=== PATIENT | female | born 1970 | race Two or more races ===

== ENCOUNTER 2023-07-27 15:30 | Emergency (ER) | payer SELFPAY ==
--- NOTE | 2023-07-27 16:37 | RAD REPORT ---
EXAM DESCRIPTION: RAD - Hand Right 3 View - 07/27/2023 4:31 pm CLINICAL HISTORY: PAIN COMPARISON: <Comparisons> FINDINGS: Mild soft tissue swelling. No fracture or dislocation.
--- NOTE | 2023-07-27 17:36 | ER ---
Nurse's Notes [facility] Name: Carole Monahan Age: 52 yrs Sex: Female : 1970 Arrival Date: 07/27/2023 Time: 15:30 Bed 11 Private MD: Diagnosis: Sprain of right fourth and fifth fingers Presentation: 07/26 15:53 Chief complaint: Patient states: she was training horses yesterday when the rope got ap3 twisted around the fingers of her right hand and she felt a "crunch". patient complains of pain 5/10 on the pain scale. Coronavirus screen: At this time, the client does not indicate any symptoms associated with coronavirus-19. Ebola Screen: No symptoms or risks identified at this time. Initial Sepsis Screen: Does the patient meet any 2 criteria? No. Patient's initial sepsis screen is negative. Does the patient have a suspected source of infection? No. Patient's initial sepsis screen is negative. Risk Assessment: Do you want to hurt yourself or someone else? Patient reports no desire to harm self or others. Onset of symptoms was July 26, 2023. 15:53 Method Of Arrival: Ambulatory ap3 15:53 Acuity: DEWAYNE 4 ap3 Triage Assessment: 15:57 General: Appears in no apparent distress. Behavior is calm, cooperative, appropriate ap3 for age. Pain: Complains of pain in right hand Pain currently is 5 out of 10 on a pain scale. at worst was 9 out of 10 on a pain scale. Pain began 1 day ago. Neuro: Level of Consciousness is awake, alert, obeys commands, Oriented to person, place, time, situation, Appropriate for age. Cardiovascular: Patient's skin is warm and dry. Respiratory: Airway is patent Respiratory effort is even, unlabored, Respiratory pattern is regular, symmetrical. Musculoskeletal: Swelling present in right little finger. Historical: - Allergies: 15:54 ceptra; ap3 15:54 Morphine; ap3 15:54 Demerol; ap3 15:54 Darvocet-N 100; ap3 15:54 Codeine; ap3 15:54 Latex, Natural Rubber; ap3 - Immunization history:: Adult Immunizations up to date. - Infectious Disease History:: Denies. - Family history:: not pertinent. - Social history:: Smoking status: Patient denies any tobacco usage or history of. Screenin:58 [facility] ED Fall Risk Assessment (Adult) History of falling in the last 3 months, ap3 including since admission No falls in past 3 months (0 pts) Confusion or Disorientation No (0 pts) Intoxicated or Sedated No (0 pts) Impaired Gait No (0 pts) Mobility Assist Device Used No (0 pt) Altered Elimination No (0 pt) Score/Fall Risk Level 0 - 2 = Low Risk Oriented to surroundings, Maintained a safe environment, Educated pt \\T\\ family on fall prevention, incl call for assistance when getting out of bed, Assessed \\T\\ reinforced patient's understanding of fall precautions, Provided non-skid footwear, Hourly rounding (assess needs \\T\\ fall precautionary measures) done, Used ambulatory aids as needed (educated on \\T\\ assisted with), Used gait belt as appropriate. Abuse screen: Denies threats or abuse. Nutritional screening: No deficits noted. Tuberculosis screening: No symptoms or risk factors identified. Assessment: 17:13 General: Appears in no apparent distress. Behavior is calm, cooperative. Neuro: Level hb of Consciousness is awake, alert, obeys commands, Oriented to person, place, time, situation. Cardiovascular: Patient's skin is warm and dry. Respiratory: Respiratory effort is even, unlabored, Respiratory pattern is regular, symmetrical. Musculoskeletal: Reports right hand pain. Vital Signs: 15:53 BP 137 / 75; Pulse 72; Resp 17; Temp 97.8; Pulse Ox 100% ; Weight 77.11 kg; Height 5 ap3 ft. 4 in. ; Pain 5/10; 15:53 Body Mass Index 29.18 (77.11 kg, 162.56 cm) ap3 15:53 Pain Scale: Adult ap3 ED Course: 15:46 Patient arrived in ED. mg5 15:47 David Mckeon MD is Attending Physician. rt 15:54 Triage completed. ap3 15:58 Arm band placed on left wrist. ap3 16:33 Hand Right 3 View XRAY In Process Unspecified. EDMS 17:13 Patient has correct armband on for positive identification. Provided Education on: use hb of call light. 17:13 No provider procedures requiring assistance completed. Patient did not have IV access hb during this emergency room visit. 17:35 Bell, Errol, DO is Referral Physician. rt 17:38 Aragon, Raquel, RN is Primary Nurse. hb Administered Medications: No medications were administered Medication: 17:13 VIS not applicable for this client. hb Outcome: 17:35 Discharge ordered by . rt 17:41 Discharged to home ambulatory, with family, hb 17:41 Condition: stable 17:41 Discharge instructions given to patient, Instructed on discharge instructions, follow up and referral plans. Demonstrated understanding of instructions, follow-up care, 17:41 Patient left the ED. hb Signatures: Dispatcher [employer] EDMS Raquel Aragon, RN RN Sylvia Pierre RN RN ap3 David Mckeon MD MD rt Melissa To mg5
--- NOTE | 2023-07-27 17:36 | EDPHYS ---
Physician Documentation [facility] Name: Carole Monahan Age: 52 yrs Sex: Female : 1970 Arrival Date: 07/27/2023 Time: 15:30 Bed 11 Private MD: ED Physician David Mckeon HPI: 07/26 16:27 This 52 yrs old Female presents to ER via Ambulatory with complaints of Hand Injury. rt 16:27 Patient presents to the ED with a head injury that started last night. Patient was rt training a horse, when the lid line pulled while was wrapped her hand. She reports of pain mostly to the fourth and fifth digits with swelling to the fifth digit. States that is difficult to close the hand due to the pain. Denies other injury, acute complaints, symptoms are aching nature, nonradiating, mild in severity, no other aggravating or alleviating factors.. Historical: - Allergies: 15:54 ceptra; ap3 15:54 Morphine; ap3 15:54 Demerol; ap3 15:54 Darvocet-N 100; ap3 15:54 Codeine; ap3 15:54 Latex, Natural Rubber; ap3 - Immunization history:: Adult Immunizations up to date. - Infectious Disease History:: Denies. - Family history:: not pertinent. - Social history:: Smoking status: Patient denies any tobacco usage or history of. ROS: 16:27 Constitutional: Negative for fever, chills, and weight loss, Skin: Negative for injury, rt rash, and discoloration, Neuro: Negative for headache, weakness, numbness, tingling, and seizure, Psych: Negative for depression, anxiety, suicide ideation, homicidal ideation, and hallucinations, 16:27 MS/extremity: Positive for pain, swelling, Exam: 16:27 Constitutional: This is a well developed, well nourished patient who is awake, alert, rt and in no acute distress. Head/Face: Normocephalic, atraumatic. Skin: Warm, dry with normal turgor. Normal color with no rashes, no lesions, and no evidence of cellulitis. Neuro: Awake and alert, GCS 15, oriented to person, place, time, and situation. Cranial nerves II-XII grossly intact. Motor strength 5/5 in all extremities. Sensory grossly intact. Cerebellar exam normal. Normal gait. 16:27 Musculoskeletal/extremity: Swelling with tenderness to the right fourth and fifth digits, no deformities noted, pulses, motor, sensation intact, good capillary refill.. Vital Signs: 15:53 BP 137 / 75; Pulse 72; Resp 17; Temp 97.8; Pulse Ox 100% ; Weight 77.11 kg; Height 5 ap3 ft. 4 in. ; Pain 5/10; 15:53 Body Mass Index 29.18 (77.11 kg, 162.56 cm) ap3 15:53 Pain Scale: Adult ap3 MDM: 16:01 Patient medically screened. rt 17:44 Differential diagnosis: Sprain, contusion, dislocation, fracture. Data reviewed: vital rt signs, nurses notes, radiologic studies. Independent interpretation of the following test(s) in the Emergency Department X-Ray: My interpretation is No fracture seen on interpretation of x-ray images. Counseling: I had a detailed discussion with the patient and/or guardian regarding the historical points, exam findings, and any diagnostic results supporting the discharge/admit diagnosis, radiology results, the need for outpatient follow up, to return to the emergency department if symptoms worsen or persist or if there are any questions or concerns that arise at home. Response to treatment: the patient's symptoms have markedly improved after treatment. 07/26 16:02 Order name: Hand Right 3 View XRAY; Complete Time: 16:42 rt Administered Medications: No medications were administered Disposition Summary: 07/27/23 17:35 Discharge Ordered Notes: Location: Home rt Problem: new rt Symptoms: have improved rt Condition: Stable rt Diagnosis - Sprain of right fourth and fifth fingers rt Followup: rt - With: Errol Bell DO - When: 5 - 6 days - Reason: Discharge Instructions: - Discharge Summary Sheet rt - Finger Sprain, Adult rt Forms: - Medication Reconciliation Form rt - Antibiotic Education rt - Prescription Opioid Use rt - Patient Portal Instructions rt - Leadership Thank You Letter rt Signatures: Dispatcher [employer] Raquel Luong, MONA DUNN Sylvia Reyes RN RN ap3 David Mckeon MD MD rt
[2023-07-27 17:50] VITALS: BP 137/75; TEMP 97.8; O2SAT 100
== END 2023-07-27 17:41 | disposition home or self-care (01) ==
LOC: ER 15:30
DX: S63.694A Other sprain of right ring finger, initial encounter (principal); S63.696A Other sprain of right little finger, initial encounter
CPT/HCPCS: 99282